=== PATIENT | female | born 2000 | race Caucasian/White ===

== ENCOUNTER 2023-04-26 12:00 | Inpatient (IN) | payer OTHER ==
[2023-04-26 13:07] VITALS: BMI 22.8
[2023-04-26] MEDS ORDERED: DINOPROSTONE 10 MG VAGINAL SUPPOSITORY VG ONE (13:46)
[2023-04-26] MEDS ORDERED: PROMETHAZINE HCL 25 MG/1 ML VIAL IVPB ONE (13:47)
[2023-04-26] MEDS ORDERED: BUTORPHANOL TARTRATE 1 MG/ML VIAL IVPUSH PRN (13:47)
[2023-04-26 16:15] LABS: BASO % 0.6 % (0-2.0); EOS % 0.2 % (0-4.5); HEMATOCRIT 30.8 % (32.4-45.2); HEMOGLOBIN 10.5 GM/dL (10.7-15.3); LYMPH % 33.9 % (8-40); MCH 30.4 pg (25.7-33.7); MCHC 34.2 g/dl (32.0-36.0); MEAN PLT VOLUME 11.8 fl (7.5-11.1); MONO % 5.7 % (3.8-10.2); NEUT % 59.6 % (42.8-82.8); PLATELET COUNT 136 10^3/uL (134-434); RBC 3.46 M/mm3 (3.60-5.2); RDW 12.4 % (11.6-15.6); WHITE BLOOD COUNT 4.1 K/mm3 (4.0-10.0)
[2023-04-26 16:26] LABS: INR 0.94 (0.83-1.09); PROTHROMBIN TIME (PATIENT) 10.9 SEC (9.7-13.0)
[2023-04-26 16:29] LABS: ACTIVATED PTT 31.4 SECONDS (25.2-36.5)
[2023-04-26 16:32] LABS: PHENCYCLIDINE,URINE NEGATIVE (NEGATIVE)
[2023-04-26 16:33] LABS: METHADONE, UR NEGATIVE (NEGATIVE); OPIATES, URI NEGATIVE (NEGATIVE); URINE BARBITURATES NEGATIVE (NEGATIVE)
[2023-04-26 16:35] LABS: COCAINE, UR NEGATIVE (NEGATIVE); URINE AMPHETAMINES NEGATIVE (NEGATIVE); URINE BENZODIAZEPINES NEGATIVE (NEGATIVE)
[2023-04-26 16:36] LABS: ALBUMIN 1.9 g/dl (3.4-5.0); CALCIUM 8.4 mg/dL (8.5-10.1)
[2023-04-26 16:40] LABS: CREATININE 0.8 mg/dL (0.55-1.3)
[2023-04-26 16:41] LABS: BILIRUBIN,TOTAL 0.7 mg/dL (0.2-1); TOT PROT 5.6 g/dl (6.4-8.2)
[2023-04-26] MEDS: DEXTROSE 5%-LACTATED RINGERS 1,000 ML IV SCH (16:52)
[2023-04-26 17:31] LABS: HIV INTERPRETATION NEGATIVE (NEGATIVE)
[2023-04-26] MEDS ORDERED: ELECTROLYTE-148 SOLN 1,000 ML IV ONE (21:00)
[2023-04-26] MEDS ORDERED: AMPICILLIN - 2 GM in SODIUM CHLORIDE 100 ML IVPB ONE (21:28)
[2023-04-26] MEDS ORDERED: BUTORPHANOL TARTRATE 1 MG/ML VIAL ONE (22:44)
[2023-04-26] MEDS ORDERED: PROMETHAZINE HCL 25 MG/1 ML VIAL ONE (22:45)
[2023-04-26] MEDS ORDERED: AMPICILLIN SODIUM 2 GM VIAL ONE (22:58)
[2023-04-27] MEDS ORDERED: OXYTOCIN 20 UNITS in 0.9% NS 20 UNIT/1,000 ML INFUS.BAG IV ONE (01:15)
[2023-04-27] MEDS ORDERED: AMPICILLIN - 1 GM in SODIUM CHLORIDE 100 ML IVPB SCH (01:30)
[2023-04-27] MEDS ORDERED: oxyCODONE HCL 5 MG TABLET PO PRN (02:08)
[2023-04-27] MEDS ORDERED: ACETAMINOPHEN 325 MG TABLET (FP) PO PRN (02:08)
[2023-04-27] MEDS ORDERED: METHYLERGONOVINE MALEATE 0.2 MG/1 ML AMP IM PRN (02:08)
[2023-04-27] MEDS ORDERED: BENZOCAINE 20% 57 GM BOTTLE TP PRN (02:08)
[2023-04-27] MEDS ORDERED: BISACODYL 10 MG SUPP.RECT RC PRN (02:08)
[2023-04-27] MEDS ORDERED: WITCH HAZEL 50% (TUCKS) 40 PAD/JAR PAD TP PRN (02:08)
[2023-04-27] MEDS ORDERED: BENZOCAINE 28 GM HEMORRHOIDAL OINTMENT TP PRN (02:08)
[2023-04-27] MEDS ORDERED: METHYLERGONOVINE MALEATE 0.2 MG/1 ML AMP IM ONE (02:09)
[2023-04-27] MEDS ORDERED: OXYTOCIN 20 UNITS in 0.9% NS 20 UNIT/1,000 ML INFUS.BAG IV SCH (02:15)
[2023-04-27 03:08] LABS: CORD HCO3 21.1 mmHg (20-29); CORD PCO2 68.4 mmHg (30-78); CORD pH 7.107 (7.14-7.44)
[2023-04-27 03:09] LABS: CORD BASE EXCESS -9.2 mmol/L (0-2); CORD HCO3 18.1 mmHg (20-29); CORD PCO2 44.6 mmHg (30-78); CORD pH 7.226 (7.14-7.44)
[2023-04-27] MEDS: IBUPROFEN 600 MG TABLET (FP) PO PRN ×3 (06:21→17:30)
[2023-04-27] MEDS: DEXTROSE 5%-LACTATED RINGERS 1,000 ML IV SCH (17:11)
[2023-04-28] MEDS: IBUPROFEN 600 MG TABLET (FP) PO PRN ×2 (06:05→20:15)
[2023-04-28 07:33] LABS: BASO % 0.2 % (0-2.0); EOS % 0.3 % (0-4.5); HEMATOCRIT 23.9 % (32.4-45.2); LYMPH % 17.9 % (8-40); MCH 30.7 pg (25.7-33.7); MCHC 33.5 g/dl (32.0-36.0); MEAN CELL VOLUME 91.4 fl (80-96); MEAN PLT VOLUME 11.7 fl (7.5-11.1); MONO % 4.3 % (3.8-10.2); NEUT % 77.3 % (42.8-82.8); PLATELET COUNT 133 10^3/uL (134-434); RBC 2.62 M/mm3 (3.60-5.2); RDW 12.5 % (11.6-15.6); WHITE BLOOD COUNT 12.2 K/mm3 (4.0-10.0)
[2023-04-28] MEDS ORDERED: DIPHTH,PERTUSS(ACELL),TET 0.5 ML DISP.SYRIN IM ONE (10:00)
[2023-04-28] MEDS ORDERED: SENNOSIDES/DOCUSATE COMBO (SENNA PLUS) TABLET (UD) PO PRN (22:00)
[2023-04-29] MEDS: IBUPROFEN 600 MG TABLET (FP) PO PRN (05:43)
[2023-04-29 10:57] VITALS: BP 97/58; PULSE 62; RESP 16; TEMP 99.1
== END 2023-04-29 12:30 | disposition home or self-care (01) | DRG 560 ==
LOC: JLDR 12:00 → J3W 04-27 03:24
PROVIDERS: ADMIT Obstetrics & Gynecology; ATTEND Obstetrics & Gynecology
PROC: 0W8NXZZ Division of Female Perineum, External Approach (ICD-10-PCS; principal; 2023-04-27)
PROC: 10E0XZZ Delivery of Products of Conception, External Approach (ICD-10-PCS; 2023-04-27)
DX: O26.62 Liver and biliary tract disorders in childbirth (principal); K83.1 Obstruction of bile duct; O69.81X0 Labor and delivery complicated by cord around neck, without compression, not applicable or unspecified; Z3A.36 36 weeks gestation of pregnancy; Z37.0 Single live birth
CPT/HCPCS: 36415; 36600; 80053; 80307; 82803; 85025; 85610; 85730; 86780; 86850; 86900; 86901; 87389; 90715